=== PATIENT | female | born 1980 | race Caucasian/White ===

== ENCOUNTER 2018-12-05 17:35 | Emergency (ER) | payer OTHER, SELFPAY ==
[2018-12-05 17:35] VITALS: BP 108/89; PULSE 70; RESP 17; TEMP 36.6; O2SAT 96; BMI 22.8
--- NOTE | 2018-12-05 18:07 | ED_ITS ---
HPI - General Chief complaint: Vaginal Bleeding Stated complaint: THINKS POSSIBLE MISCARRIAGE Time Seen by Provider: 12/05/18 18:07 Source: patient Mode of arrival: ambulatory Limitations: no limitations History of Present Illness HPI Narrative: Otherwise healthy 38-year-old at approximately 11 weeks EGA by last menstrual period. She has had visits with OB prior to this secondary to vaginal spotting. She states she has had 2 ultrasounds prior to her visit today all done in an outside facility. She states she has been told that the pregnancies and uterus. This was a planned . Did not receive any fertility treatment prior to the . Is having some lower abdominal cramping but is having quite a bit of vaginal bleeding. She states that is about the amount of a normal menstrual cycle. All of her bleeding started earlier today. Patient : Yes Review of Systems Constitutional Denies fever(s) and Denies headache(s) ENT Ears, Nose, Mouth, and Throat: Denies headache(s) Cardiovascular Denies chest pain and Denies dyspnea Respiratory Denies dyspnea Gastrointestinal Gastrointestinal: Reports cramping, Denies nausea and Denies vomiting Genitourinary Denies dysuria Comments: Vaginal bleeding Musculoskeletal Denies myalgias and Denies arthralgias Integumentary/Breasts Denies rash Neurologic Denies behavioral changes and Denies headache(s) Psychiatric Denies behavioral changes Hematologic/Lymphatic Denies easy bleeding and Denies easy bruising PMFSH - Past Medical History Medical history: Reports no medical history Surgical history: Reports non-contributory Patient : Yes Psychiatric history: Reports no psych history Family history: Reports no significant family history Exam Initial Vital Signs Initial Vital Signs: Vital Signs Temperature 97.9 F 12/05/18 17:35 Pulse Rate 70 12/05/18 17:35 Respiratory Rate 17 12/05/18 17:35 Blood Pressure 108/89 12/05/18 17:35 Pulse Oximetry 96 12/05/18 17:35 Const General: cooperative, comfortable, well developed, well groomed and No acute distress Orientation: alert and awake HENME Head: normal to inspection and normocephalic Resp Effort & Inspection: normal respiratory effort Cardio Rate: regular rate GI Inspection: non-distended Palpation: soft Skin Rashes: no rashes Neuro General: alert and awake Speech: speech normal Gait: normal gait Extrem General: normal to inspection Psych Appearance: grossly normal and well kempt Course Orders Ordered: ED Orders 12/05/18 17:40 UA Complete [Urinalysis and Microscopic] Stat Urine Culture Stat 12/05/18 18:10 ABO RH Type Stat Complete Blood Count AUTO DIFF Stat Comprehensive Metabolic Panel Stat HCG Quantitative Stat 12/05/18 18:17 US OB <= 14 weeks fetus Stat Vital Signs - 8 hr 12/05/18 20:15 Pulse Rate 64 Respiratory Rate 14 Blood Pressure 110/88 Pulse Oximetry 99 MDM - OB/Uterine Contractions Lab Data Attestation: I reviewed the patient's lab results. Result diagrams: 12/05/18 18:10 12/05/18 18:10 Lab Results 12/05/18 12/05/18 12/05/18 Range/Units 17:40 18:10 18:10 WBC 7.4 (4.5-11.0) X10^3/uL RBC 4.32 (4.0-5.2) X10^6/uL Hgb 13.2 (12.0-16.0) g/dL Hct 37.8 (36-46) % MCV 87.5 (80-100) fL MCH 30.7 (26-34) PG MCHC 35.1 (30-36) % RDW 11.7 (11.6-14.8) % Plt Count 186 (150-400) X10^3/uL Neut % (Auto) 63.6 (50-75) % Lymph % (Auto) 26.9 (25-40) % [place] % (Auto) 7.3 (3-14) % Eos % (Auto) 1.7 L (2-4) % Baso % (Auto) 0.5 (0-2) % Neut # (Auto) 4700 (7919-0518) /uL Lymph # (Auto) 2000 (7088-4715) /uL [place] # (Auto) 500 (0-900) /uL Eos # (Auto) 100 (0-450) /uL Baso # (Auto) 0 (0-100) /uL Sodium 136 L (137-145) mmol/L Potassium 3.7 (3.4-5.1) mmol/L Chloride 102 (98-107) mmol/L Carbon Dioxide 24 (22-32) mmol/L BUN 12 (7-17) mg/dL Creatinine 0.70 (0.52-1.04) mg/dL Estimated GFR > 60.0 (>60) mL/min BUN/Creatinine Ratio 17.1 (6-22) Glucose 116 H (70-100) mg/dL Calcium 9.4 (8.4-10.2) mg/dL Total Bilirubin 0.4 (0.2-1.3) mg/dL AST 36 (14-36) IU/L ALT 30 (9-52) IU/L Alkaline Phosphatase 36 L (38-126) U/L Total Protein 6.9 (6.3-8.2) g/dL Albumin 4.2 (3.5-5.0) g/dL Globulin 2.7 (1.7-4.1) g/dL Albumin/Globulin Ratio 1.6 (1.0-2.8) HCG, Quant 44577 mIU/mL Urine Color Yellow Urine Appearance Cloudy Urine pH 5.0 (4.5-8.0) Ur Specific [place] >=1.030 H (1.000-1.035) Urine Protein Trace H (Negative) Urine Glucose (UA) Negative (Negative) g/dL Urine Ketones Trace H (NEGATIVE) Urine Occult Blood 3+ H (Negative) Urine Nitrate Negative (Negative) Urine Bilirubin Negative (NEGATIVE) Urine Urobilinogen 0.2 (0.2) E.U./dL Ur Leukocyte Esterase Trace H (NEGATIVE) Urine RBC >100/hpf H (0-5/HPF) Urine WBC 5-10/hpf H (0-5/HPF) Ur Squamous Epith Cells 1-5 /hpf (0-5/HPF) Amorphous Sediment 1+ Urine Bacteria Few (2-10) H (None) Urine Mucus 1+ H (Negative) Ur Culture Indicated? Specimen cultured Blood Type 12/05/18 Range/Units 18:10 WBC (4.5-11.0) X10^3/uL RBC (4.0-5.2) X10^6/uL Hgb (12.0-16.0) g/dL Hct (36-46) % MCV (80-100) fL MCH (26-34) PG MCHC (30-36) % RDW (11.6-14.8) % Plt Count (150-400) X10^3/uL Neut % (Auto) (50-75) % Lymph % (Auto) (25-40) % [place] % (Auto) (3-14) % Eos % (Auto) (2-4) % Baso % (Auto) (0-2) % Neut # (Auto) (1400-0526) /uL Lymph # (Auto) (4478-1859) /uL [place] # (Auto) (0-900) /uL Eos # (Auto) (0-450) /uL Baso # (Auto) (0-100) /uL Sodium (137-145) mmol/L Potassium (3.4-5.1) mmol/L Chloride (98-107) mmol/L Carbon Dioxide (22-32) mmol/L BUN (7-17) mg/dL Creatinine (0.52-1.04) mg/dL Estimated GFR (>60) mL/min BUN/Creatinine Ratio (6-22) Glucose (70-100) mg/dL Calcium (8.4-10.2) mg/dL Total Bilirubin (0.2-1.3) mg/dL AST (14-36) IU/L ALT (9-52) IU/L Alkaline Phosphatase (38-126) U/L Total Protein (6.3-8.2) g/dL Albumin (3.5-5.0) g/dL Globulin (1.7-4.1) g/dL Albumin/Globulin Ratio (1.0-2.8) HCG, Quant mIU/mL Urine Color Urine Appearance Urine pH (4.5-8.0) Ur Specific [place] (1.000-1.035) Urine Protein (Negative) Urine Glucose (UA) (Negative) g/dL Urine Ketones (NEGATIVE) Urine Occult Blood (Negative) Urine Nitrate (Negative) Urine Bilirubin (NEGATIVE) Urine Urobilinogen (0.2) E.U./dL Ur Leukocyte Esterase (NEGATIVE) Urine RBC (0-5/HPF) Urine WBC (0-5/HPF) Ur Squamous Epith Cells (0-5/HPF) Amorphous Sediment Urine Bacteria (None) Urine Mucus (Negative) Ur Culture Indicated? Blood Type B Positive Imaging Data Pelvic ultrasound: Radiologist's impression: VEE FOX 38 F [address] [address] Ultrasound Report Signed Patient: FOXVEE#: [id number] : 1980Acct:[id number] Age/Sex: 38 / FDate of Service: 12/05/18 Loc: ED Accession Number: [id number] Procedure: US OB <= 14 weeks fetus Ordering Provider: Aldo Heck D.O. PROCEDURE: US OB <= 14 WEEKS FETUS INDICATIONS: 11 WEEKS, BLEEDING OUTSIDE/PRIOR DATING DATA: Last menstrual period (LMP): 09/20/18. LMP-based estimated date of delivery (KENN): 06/27/19. First dating scan (date and location): This examination. Estimated date of delivery (KENN) from first dating scan: 06/25/19. TECHNIQUE: Real-time scanning was performed of the fetus and maternal pelvic organs, with image documentation. COMPARISON: None. FINDINGS: Embryo: Single living intrauterine fetus is present with a heart rate measuring 169 beats per minute. [place]-rump length measures 4.3 cm, 11 weeks one day. Ill defined perigestaional hemorrhage measuring 5.2 x 2.3 x 6.4 cm Measurement variability in dating: +/- 4 weeks by LMP, +/- 7 days by mean sac diameter (use before 6 weeks gestation if crown-rump length not able to be measured), +/- 5 days by crown-rump length (up to 8 weeks 6 days gestation), +/- 7 days by crown-rump length (up to 13 weeks 6 days gestation). Maternal organs: Ovaries unremarkable except for a presumed right-sided corpus luteum. Limited images through the kidneys demonstrate no hydronephrosis. IMPRESSION: Single living intrauterine fetus with gestational age of 11 weeks and one day. Perigestational hemorrhage as above. Dictated by: Corwin Mac M.D. on 12/05/2018 at 19:51 Approved by: Corwin Mac M.D. on 12/05/2018 at 19:54 MDM Narrative Medical decision making narrative: Ultrasound today shows intrauterine with an estimated gestational age of 11 weeks and 1 day. Also shows cardiac activity. Blood type is Rh positive. No indication for RhoGAM. Discussed the ultrasound results with the patient. We discussed return precautions. Discussed follow-up instructions. Patient expressed understanding with plan. Discharge Plan Departure Patient Disposition: Home Clinical Impression: Threatened Discharge Date/Time: 12/05/18 20:15 Interventions: ED Discharge Assessment Last Done: 12/05/18 20:15 Instructions: DI for Threatened , DI for Vaginal Bleeding Activity Restrictions/Additional Instructions: Recommend that tomorrow you contact your OB provider for follow-up. Return to the emergency department for any new or worsening symptoms Stand Alone Forms: Work Release Note
[2018-12-05 18:17] LABS: Add Manual Diff / Slide Review NO; Basophils Absolute Auto 0 /uL (0-100); Basophils Percent Auto 0.5 % (0-2); Eosinophils Absolute Auto 100 /uL (0-450); Eosinophils Percent Auto 1.7 % (2-4); Hematocrit 37.8 % (36-46); Hemoglobin 13.2 g/dL (12.0-16.0); Lymphocytes Absolute Auto 2000 /uL (1100-4500); Lymphocytes Percent Auto 26.9 % (25-40); Mean Corpuscular HGB Conc 35.1 % (30-36); Mean Corpuscular Hemoglobin 30.7 PG (26-34); Mean Corpuscular Volume 87.5 fL (80-100); Monocytes Absolute Auto 500 /uL (0-900); Monocytes Percent Auto 7.3 % (3-14); Neutrophils Absolute Auto 4700 /uL (1500-7000); Neutrophils Percent Auto 63.6 % (50-75); Platelet Count 186 X10^3/uL (150-400); Red Blood Cell Count 4.32 X10^6/uL (4.0-5.2); Red Cell Distribution Width 11.7 % (11.6-14.8); White Blood Cell Count 7.4 X10^3/uL (4.5-11.0)
--- NOTE | 2018-12-05 18:17 | DI.US.S_ITS ---
PROCEDURE: US OB <= 14 WEEKS FETUS INDICATIONS: 11 WEEKS, BLEEDING OUTSIDE/PRIOR DATING DATA: Last menstrual period (LMP): 09/20/18. LMP-based estimated date of delivery (KENN): 06/27/19. First dating scan (date and location): This examination. Estimated date of delivery (KENN) from first dating scan: 06/25/19. TECHNIQUE: Real-time scanning was performed of the fetus and maternal pelvic organs, with image documentation. COMPARISON: None. FINDINGS: Embryo: Single living intrauterine fetus is present with a heart rate measuring 169 beats per minute. [place]-rump length measures 4.3 cm, 11 weeks one day. Ill defined perigestaional hemorrhage measuring 5.2 x 2.3 x 6.4 cm Measurement variability in dating: +/- 4 weeks by LMP, +/- 7 days by mean sac diameter (use before 6 weeks gestation if crown-rump length not able to be measured), +/- 5 days by crown-rump length (up to 8 weeks 6 days gestation), +/- 7 days by crown-rump length (up to 13 weeks 6 days gestation). Maternal organs: Ovaries unremarkable except for a presumed right-sided corpus luteum. Limited images through the kidneys demonstrate no hydronephrosis. IMPRESSION: Single living intrauterine fetus with gestational age of 11 weeks and one day. Perigestational hemorrhage as above. Dictated by: Corwin Mac M.D. on 12/05/2018 at 19:51 Approved by: Corwin Mac M.D. on 12/05/2018 at 19:54
[2018-12-05 18:33] LABS: Alanine Aminotransferase 30 IU/L (9-52); Albumin 4.2 g/dL (3.5-5.0); Albumin Globulin Ratio 1.6 (1.0-2.8); Alkaline Phosphatase 36 U/L (38-126); Aspartate Aminotransferase 36 IU/L (14-36); BUN Creatinine Ratio 17.1 (6-22); Bilirubin Total 0.4 mg/dL (0.2-1.3); Blood Urea Nitrogen 12 mg/dL (7-17); Calcium 9.4 mg/dL (8.4-10.2); Carbon Dioxide 24 mmol/L (22-32); Chloride 102 mmol/L (98-107); Estimated Glomerular Filt Rate > 60.0 mL/min (>60); Globulin 2.7 g/dL (1.7-4.1); Glucose 116 mg/dL (70-100); HEMOLYSIS < 15 (0-50); Potassium 3.7 mmol/L (3.4-5.1); Sodium 136 mmol/L (137-145); Total Protein 6.9 g/dL (6.3-8.2)
[2018-12-05 18:39] LABS: Appearance Urine UA CLOUDY; Bilirubin Urine UA NEGATIVE (NEGATIVE); Color Urine UA YELLOW; Glucose Urine UA NEGATIVE (Negative); Ketones Urine UA TRACE (NEGATIVE); Leukocyte Esterase Urine UA TRACE (NEGATIVE); Nitrite Urine UA NEGATIVE (Negative); Occult Blood Urine UA 3+ (Negative); Protein Urine UA TRACE (Negative); Specific Gravity Urine UA >=1.030 (1.000-1.035); Urobilinogen Urine UA 0.2 E.U./dL (0.2)
[2018-12-05 18:45] LABS: Amorphous Sediment Urine 1+; RBC Urine >100/HPF (0-5/HPF); Squamous Epithelial Cell Urine 1-5 /HPF (0-5/HPF); WBC Urine 5-10/HPF (0-5/HPF)
[2018-12-05 18:46] LABS: Bacteria Urine Few (2-10); Culture Indicated Urine Specimen Cultured; Mucus Urine 1+ (Negative)
[2018-12-05 19:16] LABS: HCG Quantitative /Beta subunit 58335 mIU/mL
[2018-12-05 20:15] VITALS: BP 110/88; PULSE 64; RESP 14; O2SAT 99
== END 2018-12-05 20:15 | disposition home or self-care (01) ==
PROVIDERS: Emergency Medicine; Emergency Provider Emergency Medicine
DX: O20.0 Threatened abortion (principal); Z3A.11 11 weeks gestation of pregnancy
CPT/HCPCS: 36415; 76801; 80053; 81001; 84702; 85025; 86900; 86901; 87086; 99283; 99284